=== PATIENT | female | born 1990 | race Caucasian/White ===

== ENCOUNTER → 2018-04-05 | Outpatient (CLI) | payer OTHER | END | disposition home or self-care (01) | LOC: LABMAIN 12:15 | PROVIDERS: ATTEND Obstetrics & Gynecology | DX: Z53.9 Procedure and treatment not carried out, unspecified reason (principal) ==

== ENCOUNTER 2018-07-02 04:20 | Inpatient (IN) | payer OTHER ==
--- NOTE | 2018-07-01 20:46 | P.HPOB ---
History of Present Illness H&P Date: 07/01/18 Chief Complaint: Induction of labor This is a 27-year-old female 2 para 1 with an estimated date of confinement of 07/07/2018, estimated gestational age of 39-2/7 weeks, who presents to labor and delivery for induction of labor. She admits to good movement. She has been feeling irregular contractions and pressure. Recently her baby was found to be in the breech presentation but as of last week had flipped to vertex. course has been otherwise uncomplicated. labs: Hemoglobin-11.2 One hour Glucola-124 Blood type-A- Antibody screen-negative, received RhoGAM at approximately 28 weeks Rubella-immune Syphilis antibody-negative Hepatitis B surface antigen-negative HIV-negative GC/chlamydia-negative Cystic fibrosis screening-negative Group B streptococcus-negative Obstetrical history: . History of 1 vaginal delivery with intrauterine growth restriction, two-vessel cord, induced at 37-5/7 weeks. Gynecologic history: No history of sexual transmitted diseases. Social history: She is engaged. 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 Review of Systems Constitutional: Denies chills, Denies fever Eyes: denies blurred vision, denies pain Ears, nose, mouth and throat: Denies headache, Denies sore throat Cardiovascular: Denies chest pain, Denies shortness of breath Respiratory: Denies cough Gastrointestinal: Reports abdominal pain (Irregular contractions) Genitourinary: Reports pelvic pain, Reports Musculoskeletal: Reports low back pain Integumentary: Denies pruritus, Denies rash Neurological: Denies numbness, Denies weakness Past Medical History Past Medical History: No Reported History Past Surgical History: No Surgical Hx Reported Past Psychological History: No Psychological Hx Reported Smoking Status: Former smoker Past Alcohol Use History: None Reported Past Drug Use History: None Reported - Past Family History Mother Family Medical History: Hypertension Medications and Allergies Home Medications Medication Instructions Recorded Confirmed Type Cholecalciferol [Vitamin D3] 1,000 unit PO DAILY 07/01/18 07/01/18 History Pnv,Calcium 72/Iron/Folic Acid 1 each PO 07/01/18 History [ Plus Tablet] Allergies Allergy/AdvReac Type Severity Reaction Status Date / Time No Known Allergies Allergy Verified 07/01/18 20:45 Exam Osteopathic Statement: *. No significant issues noted on an osteopathic structural exam other than those noted in the History and Physical/Consult. HEENT: Within normal limits Heart: Regular rate and rhythm Lungs: Clear to auscultation bilaterally Abdomen: , nontender heart tones: 140s by Doppler Cervix: 4 cm/60%/-2 station Extremities: Negative Homans Assessment and Plan (1) 39 weeks gestation of Status: Acute Code(s): Z3A.39 - 39 WEEKS GESTATION OF SNOMED Code( s): 49809820 Plan: Proceed with oxytocin induction of labor. Expectant management. Epidural anesthesia if desired.
[2018-07-02] MEDS ORDERED: METHYLERGONOVINE 0.2 MG/ML 1 ML AMP IM PRN (04:50)
[2018-07-02] MEDS ORDERED: LIDOCAINE 0.5% (PF) 5 MG/ML (50 ML SDV) SQ PRN (04:50)
[2018-07-02] MEDS ORDERED: LIDOCAINE 1% 20 ML VIAL (10MG/ML) FOR IV START INTRADERMA PRN (04:50)
[2018-07-02] MEDS ORDERED: OXYTOCIN 20 UNITS/1000 ML NS 1,000 ML IV SCH ×2 (04:50→11:07)
[2018-07-02] MEDS ORDERED: OXYTOCIN 10 UNIT/ML 1 ML VIAL IM PRN (04:50)
[2018-07-02] MEDS ORDERED: TERBUTALINE 1 MG/ML VIAL SQ PRN (04:50)
[2018-07-02] MEDS ORDERED: CARBOPROST TROMETHAMINE 250 MCG/ML 1 ML AMP IM PRN (04:50)
[2018-07-02 05:02] LABS: Basophils % (A) 0 %; Eosinophils # (A) 0.2 k/uL (0-0.7); Eosinophils % (A) 2 %; HCT 36.5 % (34.0-46.0); HGB 12.3 gm/dL (11.4-16.0); Lymphocytes # (A) 1.5 k/uL (1.0-4.8); Lymphocytes % (A) 18 %; MCH 31.9 pg (25.0-35.0); MCHC 33.7 g/dL (31.0-37.0); MCV 94.7 fL (80.0-100.0); Mean Platelet Volume 7.7; Monocytes # (A) 0.4 k/uL (0-1.0); Monocytes % (A) 5 %; Neutrophils % (A) 73 %; Platelet Count 225 k/uL (150-450); RBC 3.85 m/uL (3.80-5.40); RDW 12.8 % (11.5-15.5); WBC 8.2 k/uL (3.8-10.6)
[2018-07-02] MEDS: LACTATED RINGERS 1,000 ML IV SCH ×2 (05:03→06:27)
[2018-07-02 05:14] VITALS: BMI 22.1
[2018-07-02] MEDS ORDERED: ROPIVACAINE 100 MG, fentaNYL (PF) 200 MCG in SODIUM CHLORIDE 0.9% 76 ML EPIDURAL ONE (06:27)
[2018-07-02] MEDS ORDERED: HYDROCORTISONE 2.5% RECTAL CREAM 30 GM TUBE RECTAL PRN (11:07)
[2018-07-02] MEDS ORDERED: diphenhydrAMINE 50 MG/ML 1 ML VIAL IVP PRN ×2 (11:07)
[2018-07-02] MEDS ORDERED: diphenhydrAMINE 50 MG CAP PO PRN (11:07)
[2018-07-02] MEDS ORDERED: LANOLIN CREAM 5 GM TUBE TOPICAL PRN (11:07)
[2018-07-02] MEDS ORDERED: ZOLPIDEM 5 MG TAB PO PRN (11:07)
[2018-07-02] MEDS ORDERED: WITCH HAZEL 1 EACH MED..PAD TOPICAL PRN (11:07)
[2018-07-02] MEDS ORDERED: diphenhydrAMINE 25 MG CAP PO PRN (11:07)
[2018-07-02] MEDS ORDERED: BENZOCAINE/MENTHOL SPRAY 1 GM/SPRAY AEROSOL TOPICAL PRN (11:07)
[2018-07-02] MEDS ORDERED: SIMETHICONE 80 MG CHEWABLE PO PRN (11:07)
[2018-07-02] MEDS: IBUPROFEN 600 MG TAB PO PRN ×2 (11:36→19:13)
--- NOTE | 2018-07-02 17:32 | P.PROBDLV ---
Vaginal Delivery Note - . Vaginal Delivery Note: The patient progressed to complete dilation after oxytocin augmentation of labor and artificial rupture membranes with questionable clear fluid noted initially. Later it was noted to be meconium stained. She did receive epidural anesthesia. Once reaching complete dilation, she began pushing. 's head came to a crown. Infant's head delivered across the perineum followed by the anterior shoulder. Nose and mouth were bulb suctioned at the perineum. The remainder the easily delivered and was placed on mother's abdomen. Cord was clamped and cut and infant was taken to warmer for evaluation. A viable female infant was noted with scores of 8 at 1 minute and 9 at 5 minutes and infant weight of 6 lbs. 12 oz. Inspection of the perineum revealed no perineal lacerations. The placenta delivered approximately 10 minutes after delivery of the infant after uterine massage was carried out. After delivery of the placenta there were some membranes palpated however upon attempting to remove the membranes it was noted that a uterine inversion was present. At this point gentle counterpressure with a gloved hand was placed on the inverted uterus and I was able to restore it back to its normal configuration. At this point oxytocin was opened up and uterus did contract well. Several pieces of membrane were manually removed. Estimated blood loss is approximately 150 mL. Mother and are in stable condition.
[2018-07-02] MEDS: SENNOSIDES-DOCUSATE SODIUM 1 EACH TAB PO SCH (23:00)
[2018-07-02] MEDS: ACETAMINOPHEN TAB 325 MG TAB PO PRN (23:54)
[2018-07-03 06:53] LABS: Basophils % (A) 0 %; Eosinophils # (A) 0.2 k/uL (0-0.7); Eosinophils % (A) 2 %; HCT 35.1 % (34.0-46.0); HGB 11.4 gm/dL (11.4-16.0); Lymphocytes # (A) 1.7 k/uL (1.0-4.8); Lymphocytes % (A) 19 %; MCH 31.3 pg (25.0-35.0); MCHC 32.6 g/dL (31.0-37.0); Mean Platelet Volume 7.6; Monocytes # (A) 0.5 k/uL (0-1.0); Monocytes % (A) 6 %; Neutrophils # (A) 6.2 k/uL (1.3-7.7); Neutrophils % (A) 70 %; Platelet Count 222 k/uL (150-450); RBC 3.66 m/uL (3.80-5.40); RDW 12.9 % (11.5-15.5); WBC 8.9 k/uL (3.8-10.6)
[2018-07-03] MEDS: IBUPROFEN 600 MG TAB PO PRN ×2 (08:13→19:24)
--- NOTE | 2018-07-03 08:24 | P.PNOBGVD ---
Subjective - Subjective Principal diagnosis: Status post vaginal delivery day #1 Interval history: Patient is doing well. She is breast-feeding. Lochia is decreasing. Pain is fairly well controlled with ibuprofen. Patient reports: Reports appetite normal, Reports voiding normally, Reports pain well controlled, Reports ambulating normally [place]: doing well, nursing well Objective - Latest Vital Signs Latest vital signs: Vital Signs Temp Pulse Resp BP 07/03/18 08:00 98.0 F 90 16 108/77 07/03/18 00:00 98.0 F 65 14 113/67 07/02/18 20:00 98.6 F 62 16 115/74 07/02/18 16:40 97.9 F 69 14 131/80 07/02/18 13:03 97.1 F L 16 122/71 07/02/18 12:39 64 16 113/74 07/02/18 12:09 72 14 130/67 07/02/18 11:54 62 14 126/68 07/02/18 11:39 68 14 124/71 07/02/18 11:18 67 16 118/71 07/02/18 11:09 97.8 F 70 16 128/74 - Exam Extremities: Present: normal. Absent: tenderness, edema Abdomen: Present: normal appearance, soft. Absent: distention, tenderness Uterus: Present: normal, firm. Absent: tenderness - Labs Labs: Abnormal Lab Results - Last 24 Hours (Table) 07/03/18 Range/Units 06:24 RBC 3.66 L (3.80-5.40) m/uL Assessment and Plan Assessment: Status post vaginal delivery day #1 (1) 39 weeks gestation of Current Visit: No Status: Acute Code(s): Z3A.39 - 39 WEEKS GESTATION OF SNOMED Code(s): 90529354 Plan: We'll continue care today. Anticipate discharge home tomorrow. Baby does need to stay for 48 hours for culture results.
[2018-07-03] MEDS: SENNOSIDES-DOCUSATE SODIUM 1 EACH TAB PO SCH ×2 (09:10→19:24)
[2018-07-03] MEDS: ACETAMINOPHEN TAB 325 MG TAB PO PRN (11:13)
--- NOTE | 2018-07-04 08:50 | P.DS ---
Providers Date of admission: 07/02/18 04:20 Expected date of discharge: 07/04/18 Attending physician: Lily Engle Primary care physician: Stated None - Discharge Diagnosis(es) (1) 39 weeks gestation of Current Visit: No Status: Acute Hospital Course: This is a 27-year-old female 2 para 1 at 39-2/7 weeks who presented for induction of labor. She delivered vaginally a viable female infant with scores of 8 at 1 minute and 9 at 5 minutes and infant weight of 6 lbs. 12 oz. on 07/02/2018 after oxytocin induction of labor. Meconium-stained fluid was noted. Also her placenta was slightly adherent in she did have a uterine inversion with delivery. This was quickly resolved with manual repositioning. Her course has been uncomplicated. Lochia has been decreasing. She is breast-feeding. Vital signs are stable. Abdomen is soft with fundus firm and nontender. Extremities show negative Homans. Impression is status post vaginal delivery day #2. Plan is to discharge home today. Routine instructions are given. She will be given a prescription for ibuprofen. She has already received a prescription for a breast pump. She is advised to follow up in the office in 6 weeks for a check. Routine instructions are given. Procedures: Oxytocin induction of labor Spontaneous vaginal delivery of a viable female on 07/02/2018 Patient Condition at Discharge: Stable Plan - Discharge Summary New Discharge Prescriptions: New Ibuprofen [Motrin] 600 mg PO Q6HR PRN #60 tab PRN Reason: Mild Pain Or Fever >= 100.5 Continue Pnv,Calcium 72/Iron/Folic Acid [ Plus Tablet] 1 each PO DAILY No Action Cholecalciferol [Vitamin D3] 1,000 unit PO DAILY Discharge Medication List Cholecalciferol [Vitamin D3] 1,000 unit PO DAILY 07/01/18 [History] Pnv,Calcium 72/Iron/Folic Acid [ Plus Tablet] 1 each PO DAILY 07/01/18 [ History] Ibuprofen [Motrin] 600 mg PO Q6HR PRN #60 tab 07/04/18 [Rx] Follow up Appointment(s)/Referral(s): Lily Engle DO [Doctor of Osteopathic Medicine] - 1 Week Activity/Diet/Wound Care/Special Instructions: Instructions 1. Do not begin any exercise program for 3 weeks. 2. Do not resume sexual relations for 3 weeks or longer if uncomfortable. 3. You may take tub baths or showers at any time. 4. You may use tampons if desired after 3 weeks. 5. Keep the area of episiotomy (stitches) clean and dry. 6. If you are not nursing, wear a good fitting, supportive bra during the day and limit fluid intake for at least 1 week to prevent breast engorgement. 7. Call the office, [phone], within the next week to make appointment for your 6 week checkup if it has not already been made. 8. Report any of the following occurrences to the doctor promptly: a. Heavy, excessive bleeding b. Chills, fever c. Burning or frequency of urination d. Pain or redness and breasts if nursing e. Increasing pain or swelling in episiotomy (stitches). In addition to the above instructions, the following additional should be followed: 1. No heavy lifting or straining (exercising) until after 6 week checkup. 2. Keep abdominal incision clean and dry: You may wear a dressing if more comfortable. 3. Make office appointment for 10 days after going home or as instructed by her doctor. Discharge Disposition: HOME SELF-CARE
[2018-07-04 10:25] VITALS: BP 108/68; PULSE 80; RESP 16; TEMP 98.2
[2018-07-04] MEDS: SENNOSIDES-DOCUSATE SODIUM 1 EACH TAB PO SCH (10:27)
[2018-07-04] MEDS: IBUPROFEN 600 MG TAB PO PRN (13:10)
== END 2018-07-04 17:35 | disposition home or self-care (01) | DRG 807 ==
LOC: 4FBP 04:20
PROVIDERS: ADMIT Obstetrics & Gynecology; ATTEND Obstetrics & Gynecology
PROC: 10E0XZZ Delivery of Products of Conception, External Approach (ICD-10-PCS; principal; 2018-07-02)
PROC: 3E033VJ Introduction of Other Hormone into Peripheral Vein, Percutaneous Approach (ICD-10-PCS; 2018-07-02)
PROC: 00HU33Z Insertion of Infusion Device into Spinal Canal, Percutaneous Approach (ICD-10-PCS; 2018-07-02)
PROC: 3E0R3BZ Introduction of Anesthetic Agent into Spinal Canal, Percutaneous Approach (ICD-10-PCS; 2018-07-02)
DX: O77.0 Labor and delivery complicated by meconium in amniotic fluid (principal); Z37.0 Single live birth; Z3A.39 39 weeks gestation of pregnancy; Z87.891 Personal history of nicotine dependence; Z82.49 Family history of ischemic heart disease and other diseases of the circulatory system
CPT/HCPCS: 85025; 86850; 86870; 86880; 86900; 86901; 88307

== ENCOUNTER → 2018-08-13 | Outpatient (CLI) | payer OTHER | END | disposition home or self-care (01) | LOC: LABWHC1 12:25 | PROVIDERS: ATTEND Obstetrics & Gynecology | DX: N91.2 Amenorrhea, unspecified (principal) | CPT/HCPCS: 36415; 84702 ==

== ENCOUNTER 2021-08-10 10:25 | Observation (INO) | payer BC ==
[2021-08-10] MEDS ORDERED: ACETAMINOPHEN IV (For NPO) 1,000 MG in EMPTY BAG 1 BAG IVPB STA (11:03)
[2021-08-10] MEDS: LACTATED RINGERS 1,000 ML IV SCH ×2 (11:30→21:32)
[2021-08-10 11:42] LABS: Basophils % (A) 0 %; Eosinophils # (A) 0.1 k/uL (0-0.7); Eosinophils % (A) 1 %; HCT 35.7 % (34.0-46.0); HGB 12.7 gm/dL (11.4-16.0); Lymphocytes % (A) 14 %; MCHC 35.6 g/dL (31.0-37.0); MCV 92.8 fL (80.0-100.0); Mean Platelet Volume 7.4; Monocytes # (A) 0.4 k/uL (0-1.0); Monocytes % (A) 6 %; Neutrophils # (A) 5.9 k/uL (1.3-7.7); Neutrophils % (A) 78 %; Platelet Count 258 k/uL (150-450); RBC 3.84 m/uL (3.80-5.40); RDW 12.5 % (11.5-15.5); WBC 7.6 k/uL (3.8-10.6)
[2021-08-10 11:55] LABS: INR 0.9 (<1.2); Partial Thromboplastin Time 23.4 sec (22.0-30.0); Prothrombin Time 9.6 sec (9.0-12.0)
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
[2021-08-10 12:15] LABS: Appearance,Urine Clear (Clear); Bilirubin,Urine Negative (Negative); Blood,Urine Negative (Negative); Color,Urine Light Yellow; Glucose,Urine (UA) Negative (Negative); Ketones,Urine Negative (Negative); Leukocyte Esterase,Urine Negative (Negative); Nitrite,Urine Negative (Negative); Protein,Urine Negative (Negative); Specific Gravity,Urine 1.003 (1.001-1.035); Urobilinogen,Urine <2.0 mg/dL (<2.0)
[2021-08-10] MEDS ORDERED: diphenhydrAMINE 50 MG/ML 1 ML VIAL IVP PRN (16:50)
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
[2021-08-10] MEDS ORDERED: ACETAMINOPHEN TAB 325 MG TAB PO STA (19:26)
[2021-08-10 21:32] VITALS: RESP 16
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
[2021-08-11 09:40] VITALS: BP 103/62; PULSE 88; TEMP 98.3
== END 2021-08-11 09:30 | disposition home or self-care (01) ==
LOC: FBPOP 10:25 → 4FBP 10:57
PROVIDERS: ADMIT Obstetrics & Gynecology Obstetrics; ATTEND Obstetrics & Gynecology Obstetrics
DX: O99.891 Other specified diseases and conditions complicating pregnancy (principal); Z04.1 Encounter for examination and observation following transport accident; Z3A.24 24 weeks gestation of pregnancy; Y92.410 Unspecified street and highway as the place of occurrence of the external cause; V43.52XA Car driver injured in collision with other type car in traffic accident, initial encounter; M79.12 Myalgia of auxiliary muscles, head and neck; M79.18 Myalgia, other site; Z87.891 Personal history of nicotine dependence; Z79.82 Long term (current) use of aspirin; Y93.89 Activity, other specified; Z82.49 Family history of ischemic heart disease and other diseases of the circulatory system; Z82.5 Family history of asthma and other chronic lower respiratory diseases
CPT/HCPCS: 99213; 96374; 96375; 86900; 86901; 85025; 85384; 85610; 85730; 86850; 81003; 76805; G0378 ×2; J1200; J0131

== ENCOUNTER 2021-10-24 11:03 | Outpatient (CLI) | payer BC ==
[2021-10-24 12:00] VITALS: BP 117/80; PULSE 98; RESP 16; TEMP 97.7
--- NOTE | 2021-11-18 11:50 | P.MSEPDOC ---
Presenting Problems - Arrival Data Date of Arrival on Unit: 10/24/21 Time of Arrival on Unit: 11:03 Mode of Transport: Ambulatory - Complaint OB-Reason for Admission/Chief Complaint: Rule Out SROM Comment: Possible SROM 1130 "clear fluid" when pt looked at vagina. Denies any leaking. Perineum dry, mothers pad, pt did not need to wear pad. Medical History - Information : 3 Para: 2 Number of Living Children: 2 - Gestational Age Gestational Age by [place] (wks/days): 35 Weeks and 3 Days Review of Systems - Review of Systems Constitutional: No problems Breast: No problems ENT: No problems Cardiovascular: No problems Respiratory: No problems Gastrointestinal: No problems Genitourinary: No problems Musculoskeletal: No problems Neurological: No problems Skin: No problems Vital Signs - Temperature Temperature: 97.7 F Temperature Source: Temporal Artery Scan - Pulse Right Sitting Brachial Pulse Rate: 98 Pulse Assessment Method: Automatic Cuff - Respirations Respiratory Rate: 16 Oxygen Delivery Method: Room Air O2 Sat by Pulse Oximetry: 98 - Blood Pressure Right Arm Sitting Blood Pressure: 117/80 Blood Pressure Mean: 92 Blood Pressure Source: Automatic Cuff Medical Screen Scoring - Assessment - Baby A Baseline FHR: 140 Heart Rate - NICHD Category: Category I (Normal) NST: Reactive Physician Notification - Physician Notified Physician Notified Date: 10/24/21 Physician Notified Time: 11:48 Physician: Julito Mauricio Order Received: Yes - Notification Comment Comment: Spk c\\Dr. Mauricio, advsd pt of Dr. Arevalo, , 35wks, c/o "pop" sensation, contractions pain last night. Pain has resolved. Pt states she feels like she has clear fluid since. Amnisure negative, +FM, no contraction. States to d/c home, follow up as scheduled. Maternal Triage Index - Maternal Triage Index Presenting for scheduled procedure w/no complaint: No - Stat/Priority 1 Stat Priority 1: No - Urgent/Priority 2 Urgent Priority 2: No - Prompt/Priority 3 Prompt Priority 3: No - Non-Urgent/Priority 4 Non-Urgent Priority 4: Yes Criteria Met for Priority 4: Possible SROM Disposition - Disposition OB Disposition: Discharge to home, Written follow up instructions reviewed Discharge Date: 10/24/21 Discharge Time: 11:50 I agree with the RN Medical Screening Exam: Yes Physician's MSE Comment: I have neither seen were examined the patient. Case reviewed; plan agreed upon as documented in EMR&OBIX.: Yes Diagnosis: RELATED CONDITIONS, UNSPECIFIED, THIRD TRIMESTER
== END 2021-10-24 11:50 | disposition home or self-care (01) ==
LOC: FBPOP 11:03
PROVIDERS: ATTEND Obstetrics & Gynecology
DX: O26.93 Pregnancy related conditions, unspecified, third trimester (principal); Z3A.35 35 weeks gestation of pregnancy
CPT/HCPCS: 59025; 84112; 99213

== ENCOUNTER 2021-11-20 06:02 | Inpatient (IN) | payer BC ==
[2021-11-20] MEDS ORDERED: TERBUTALINE 1 MG/ML VIAL SQ PRN (06:08)
[2021-11-20] MEDS ORDERED: CARBOPROST TROMETHAMINE 250 MCG/ML 1 ML AMP IM PRN (06:08)
[2021-11-20] MEDS ORDERED: OXYTOCIN 10 UNIT/ML 1 ML VIAL IM PRN (06:08)
[2021-11-20] MEDS ORDERED: LIDOCAINE 1% (PF) 10 MG/ML (30 ML SDV) SQ PRN (06:08)
[2021-11-20] MEDS ORDERED: METHYLERGONOVINE 0.2 MG/ML 1 ML AMP IM PRN (06:08)
[2021-11-20] MEDS ORDERED: OXYTOCIN 30 UNITS/500 ML NS 30 UNIT in SALINE 1 500ML.BAG IV SCH ×2 (06:15→16:30)
[2021-11-20] MEDS: LACTATED RINGERS 1,000 ML IV SCH (06:25)
[2021-11-20 06:35] LABS: Basophils % (A) 1 %; Eosinophils # (A) 0.1 k/uL (0-0.7); Eosinophils % (A) 2 %; HCT 37.5 % (34.0-46.0); HGB 12.7 gm/dL (11.4-16.0); Lymphocytes # (A) 1.4 k/uL (1.0-4.8); Lymphocytes % (A) 25 %; MCH 33.4 pg (25.0-35.0); MCHC 33.9 g/dL (31.0-37.0); MCV 98.4 fL (80.0-100.0); Mean Platelet Volume 8.2; Monocytes # (A) 0.4 k/uL (0-1.0); Monocytes % (A) 7 %; Neutrophils # (A) 3.5 k/uL (1.3-7.7); Neutrophils % (A) 64 %; Platelet Count 213 k/uL (150-450); RBC 3.81 m/uL (3.80-5.40); RDW 12.9 % (11.5-15.5); WBC 5.5 k/uL (3.8-10.6)
[2021-11-20] MEDS ORDERED: fentaNYL (PF) 50 MCG/ML 5 ML AMP ONE (09:40)
[2021-11-20] MEDS ORDERED: SODIUM CHLORIDE 0.9% 100 ML BAG ONE (09:40)
[2021-11-20] MEDS ORDERED: ROPIVACAINE 5MG/ML 20ML VIAL ONE (09:40)
[2021-11-20] MEDS ORDERED: HYDROCORTISONE 2.5% RECTAL CREAM 30 GM TUBE RECTAL PRN (16:26)
[2021-11-20] MEDS ORDERED: ZOLPIDEM 5 MG TAB PO PRN (16:26)
[2021-11-20] MEDS ORDERED: BENZOCAINE/MENTHOL SPRAY 1 GM/SPRAY AEROSOL TOPICAL PRN (16:26)
[2021-11-20] MEDS ORDERED: SIMETHICONE 80 MG CHEWABLE PO PRN (16:26)
[2021-11-20] MEDS ORDERED: LANOLIN CREAM 5 GM TUBE TOPICAL PRN (16:26)
[2021-11-20] MEDS ORDERED: diphenhydrAMINE 50 MG CAP PO PRN (16:26)
[2021-11-20] MEDS ORDERED: diphenhydrAMINE 25 MG CAP PO PRN (16:26)
[2021-11-20] MEDS ORDERED: diphenhydrAMINE 50 MG/ML 1 ML VIAL IVP PRN ×2 (16:26)
--- NOTE | 2021-11-20 16:28 | P.HPOB ---
History of Present Illness H&P Date: 11/20/21 Chief Complaint: IUP at 39 and 0/7 weeks This a 31-year-old at 39 0/7 weeks that presents for elective induction of labor. Patient has been receiving routine preventive care with myself which has been essentially uncomplicated. Patient notes good movement. Patient denies vaginal bleeding or loss of fluid. Patient does note with her last delivery she had a uterine inversion with delivery of the placenta. On bloodwork this patient has a blood type of A-, rubella equivocal, hepatitis B surface antigen negative, HIV negative RPR negative group beta strep cultures negative Review of Systems Constitutional: Reports fatigue, Denies chills, Denies fever Ears, nose, mouth and throat: Denies headache Cardiovascular: Reports leg edema Respiratory: Denies dyspnea Gastrointestinal: Denies nausea, Denies vomiting Genitourinary: Reports Past Medical History Past Medical History: No Reported History History of Any Multi-Drug Resistant Organisms: None Reported Past Surgical History: No Surgical Hx Reported Past Anesthesia/Blood Transfusion Reactions: No Reported Reaction Past Psychological History: No Psychological Hx Reported Smoking Status: Never smoker Past Alcohol Use History: None Reported Past Drug Use History: None Reported - Past Family History Mother Family Medical History: COPD, Hypertension Additional Family Medical History / Comment(s): emphysema Medications and Allergies Home Medications Medication Instructions Recorded Confirmed Type Pnv,Calcium 72/Iron/Folic Acid 1 each PO DAILY 07/01/18 11/20/21 History [ Plus Tablet] Aspirin [Children's Aspirin] 81 mg PO HS 08/10/21 11/20/21 History diphenhydrAMINE [Benadryl] 25 mg PO HS PRN 11/20/21 11/20/21 History Allergies Allergy/AdvReac Type Severity Reaction Status Date / Time No Known Allergies Allergy Verified 11/20/21 06:08 Exam Osteopathic Statement: *. No significant issues noted on an osteopathic structural exam other than those noted in the History and Physical/Consult. 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 Amniotomy was performed and clear fluid was obtained. Results Result Diagrams: 11/20/21 06:20 Assessment and Plan (1) Term Current Visit: Yes Status: Acute Code(s): Z34.90 - ENCNTR FOR SUPRVSN OF NORMAL , UNSP, UNSP TRIMESTER SNOMED Code(s): 27487045 Plan: 31-year-old at 39 0/7 weeks that presents for elective induction of labor. Patient is admitted to labor and delivery and Pitocin induction of labor is begun. Options for analgesia discussed with patient including Stadol and epidural. Patient will consider. Anticipate spontaneous vaginal delivery later today.
--- NOTE | 2021-11-20 16:30 | P.PROBDLV ---
Vaginal Delivery Note - . Vaginal Delivery Note: 31-year-old 002 at 39-2/7 weeks that presents to labor and delivery for elective induction of labor. Patient had a unremarkable . Patient does have a history of uterine inversion with placental delivery with her last delivery. Patient is admitted to labor and delivery and Pitocin induction of labor was begun. Patient underwent amniotomy and clear fluid was obtained. Patient progressed through labor eventually becoming uncomfortable requesting epidural placement. Epidural was placed without difficulty. Patient progressed to complete and pushing and had a normal spontaneous vaginal delivery of a viable female , weight is pending at this time. Delivery time of 1600. After two-minute delayed the umbilical cord was doubly clamped and cut. The was handed to the maternal abdomen. Spontaneous cry was noted at . The placenta was delivered spontaneously intact with a three-vessel cord being noted. Uterus was noted to be firm and 2 finger breaths below the umbilicus. On inspection the patient's vaginal vault no lacerations were appreciated. Estimated blood loss 100 mL patient and infant tolerated delivery well and are resting comfortably
[2021-11-20] MEDS: IBUPROFEN 600 MG TAB PO SCH (17:32)
[2021-11-20] MEDS: SENNOSIDES-DOCUSATE SODIUM 1 EACH TAB PO SCH (20:13)
[2021-11-20] MEDS ORDERED: Rhogam IMMUNE GLOBULIN 1,500 UNIT/1 ML IM ONE (23:12)
[2021-11-21] MEDS: LACTATED RINGERS 1,000 ML IV SCH (00:06)
[2021-11-21] MEDS: IBUPROFEN ORAL SUSP 100 MG/5 ML CUP PO SCH ×3 (00:07→17:26)
[2021-11-21] MEDS: IBUPROFEN 600 MG TAB PO SCH ×4 (00:35→17:27)
[2021-11-21] MEDS: SENNOSIDES-DOCUSATE SODIUM 1 EACH TAB PO SCH (08:24)
[2021-11-21 08:33] VITALS: RESP 15
--- NOTE | 2021-11-21 09:27 | P.DS ---
Providers Date of admission: 11/20/21 06:02 Expected date of discharge: 11/21/21 Attending physician: Georgiana Arevalo Primary care physician: Stated None - Discharge Diagnosis(es) (1) Term Current Visit: Yes Status: Acute (2) Status post vaginal delivery Current Visit: Yes Status: Acute Hospital Course: This 31-year-old G3 now P3 003 that presented to labor and delivery at 39-2/7 weeks. Patient presented for elective induction of labor. Patient was admitted to labor and delivery and Pitocin induction of labor was begun per hospital protocol. Patient progressed through labor amniotomy was performed and clear fluid was obtained. Patient became uncomfortable and did request epidural placement by the anesthesia department. Epidural was placed without difficulty. Patient progressed to complete began pushing had normal spontaneous vaginal delivery of viable female infant at 1600, weight of 7 lbs. 0 oz., Apgars of 9 and 10 at one and 5 minutes respectively. No vaginal lacerations were appreciated during delivery. Patient has done well . She is ambulat ing and voiding without difficulty. She is tolerating a regular diet without nausea or vomiting. She is breast-feeding well. She denies concerns and would like discharge home at 24 hours. Patient Condition at Discharge: Good Plan - Discharge Summary New Discharge Prescriptions: No Action Pnv,Calcium 72/Iron/Folic Acid [ Plus Tablet] 1 each PO DAILY Aspirin [Children's Aspirin] 81 mg PO HS diphenhydrAMINE [Benadryl] 25 mg PO HS PRN PRN Reason: Insomnia Discharge Medication List Pnv,Calcium 72/Iron/Folic Acid [ Plus Tablet] 1 each PO DAILY 07/01/18 [History] Aspirin [Children's Aspirin] 81 mg PO HS 08/10/21 [History] diphenhydrAMINE [Benadryl] 25 mg PO HS PRN 11/20/21 [History] Follow up Appointment(s)/Referral(s): Georgiana Arevalo DO [Doctor of Osteopathic Medicine] - 4 Weeks Patient Instructions/Handouts: Vaginal Delivery (DC), Vaginal Delivery (GEN)
[2021-11-21 16:20] VITALS: BP 125/78; PULSE 67; TEMP 98.3
== END 2021-11-21 17:05 | disposition home or self-care (01) | DRG 807 ==
LOC: 4FBP 06:02
PROVIDERS: ADMIT Obstetrics & Gynecology Obstetrics; ATTEND Obstetrics & Gynecology Obstetrics
PROC: 10E0XZZ Delivery of Products of Conception, External Approach (ICD-10-PCS; principal; 2021-11-20)
PROC: 10907ZC Drainage of Amniotic Fluid, Therapeutic from Products of Conception, Via Natural or Artificial Opening (ICD-10-PCS; 2021-11-20)
PROC: 4A0HXCZ Measurement of Products of Conception, Cardiac Rate, External Approach (ICD-10-PCS; 2021-11-20)
PROC: 3E033VJ Introduction of Other Hormone into Peripheral Vein, Percutaneous Approach (ICD-10-PCS; 2021-11-20)
DX: O80 Encounter for full-term uncomplicated delivery (principal); Z37.0 Single live birth; Z3A.39 39 weeks gestation of pregnancy; Z79.82 Long term (current) use of aspirin
CPT/HCPCS: 85025; 85461; 86850; 86900; 86901

== ENCOUNTER → 2022-09-21 | Outpatient (CLI) | payer BC ==
--- NOTE | 2022-09-21 09:54 | MM ---
Reason for Exam: Clinical finding. Patient History: Menarche at age 15. First Full-Term at age 25. Maternal aunt had breast cancer, age 30. Last menstrual period: 08/23/2022 Tissue Density: The breast tissue is extremely dense which could obscure a lesion on mammography. Findings: Analyzed By CAD. No worrisome cluster of microcalcifications or suspicious mass within either breast. Overall Assessment: Incomplete: need additional imaging evaluation, BI-RAD 0 Management: Diagnostic Breast Ultrasound of the left breast. A clinical breast exam by your physician is recommended on an annual basis and results should be correlated with mammographic findings. This exam should not preclude additional follow-up of suspicious palpable abnormalities. Results were given to the patient verbally at the time of exam. Electronically signed and approved by: Bereket Medina D.O.
--- NOTE | 2022-09-21 10:24 | USB ---
Reason for Exam: Clinical finding. Patient History: Menarche at age 15. First Full-Term at age 25. Maternal aunt had breast cancer, age 30. Technique: Method: Targeted. Findings: The upper outer quadrant of the left breast, the area of palpable concern of the left breast and the retroareolar of the left breast were scanned. A complete US of all four quadrants of the left breast and retro-areolar region were reviewed. No solid or cystic masses are identified.. Overall Assessment: Negative, BI-RAD 1 Management: Screening Mammogram of both breasts at age 42. A clinical breast exam by your physician is recommended on an annual basis and results should be correlated with mammographic findings. This exam should not preclude additional follow-up of suspicious palpable abnormalities. Results were given to the patient verbally at the time of exam. Electronically signed and approved by: Bereket Medina D.O.
== END | disposition home or self-care (01) ==
LOC: RADMAMWWP 09:11
PROVIDERS: ATTEND Family Medicine
DX: N63.10 Unspecified lump in the right breast, unspecified quadrant (principal); N63.20 Unspecified lump in the left breast, unspecified quadrant; Z80.3 Family history of malignant neoplasm of breast
CPT/HCPCS: 77062; 77066

== ENCOUNTER → 2024-03-21 | Outpatient (CLI) | payer BC ==
[2024-03-21 23:24] LABS: HCT 43.2 % (37.2-46.3); HGB 14.6 g/dL (12.0-15.0); MCH 31.7 pg (27.0-32.0); MCHC 33.8 g/dL (32.0-37.0); MCV 93.9 FL (80.0-97.0); Mean Platelet Volume 9.7 FL (9.5-12.2); NRBC Per 100 WBC 0 X 10*3/uL (0.00-0.01); Platelet Count 301 X 10*3/uL (140-440); RDW 12.6 % (11.5-14.5); WBC 6.38 X 10*3/uL (4.50-10.00)
[2024-03-21 23:38] LABS: Erythrocyte Sedimentation Rate 7 mm/Hr (0-20)
[2024-03-22 07:51] LABS: ALT 17 U/L (8-44); AST 23 U/L (13-35); Albumin 4.7 g/dL (3.8-4.9); Albumin/Globulin Ratio 1.96 Ratio (1.60-3.17); Alkaline Phosphatase 73 U/L (41-126); Blood Urea Nitrogen 9.8 mg/dL (9.0-27.0); Calcium 9.9 mg/dL (8.7-10.3); Carbon Dioxide 26.3 mmol/L (21.6-31.8); Chloride 101 mmol/L (96-109); Chol/HDL Ratio 2.44 Ratio; Globulin 2.4 g/dL (1.6-3.3); Glucose 96 mg/dL (70-110); LDL Cholesterol,Calculated 96.9 mg/dL (0.0-131.0); Potassium 4.5 mmol/L (3.5-5.5); Rheumatoid Factor, Qnt <15 IU/mL (0-15); Sodium 140 mmol/L (135-145); Total Bilirubin 0.4 mg/dL (0.3-1.2); Total Protein 7.1 g/dL (6.2-8.2); VLDL Calculation 12.18 mg/dL (5.00-40.00)
== END | disposition home or self-care (01) ==
LOC: LABWHC1 09:27
PROVIDERS: ATTEND Family Medicine
DX: Z00.00 Encounter for general adult medical examination without abnormal findings (principal); I10 Essential (primary) hypertension; E03.9 Hypothyroidism, unspecified; R53.83 Other fatigue
CPT/HCPCS: 36415; 80053; 80061; 83036; 84443; 85027; 85652; 86431